=== PATIENT | male | born 1955 | race Caucasian/White ===

== ENCOUNTER 2021-05-27 00:34 | Inpatient (IN) | payer MEDICARE ==
[~2021-05-27] VITALS: Ht 170.2 cm; Wt 91.9 kg
[~2021-05-27 00:34] MED LIST: ACET120S; CYCL10 PO; HYDACE5 PO; IBUP600 PO; LOSA50; Naprosyn500 MG PO; Norco 5-325 Ta1 EACH PO; OXYACE7.5T PO; PRED1SU; VALA500 PO
[2021-05-27] MEDS ORDERED: PRED FORTE5 M1 BOTHEYES (00:56)
[2021-05-27 00:58] LABS: Hematocrit 40.9 % (37.0-53.0); Hemoglobin 13.3 g/dL (13.5-17.5); Mean Corpuscular HGB 29.8 pg (26.0-34.0); Mean Corpuscular HGB Conc 32.5 g/dL (31.5-36.5); Mean Corpuscular Volume 92 fL (80-100); Mean Platelet Volume 10.2 fL (9.1-12.4); Platelet Count 330 K/mm3 (150-400); RDW Coefficient Variation 13.7 % (11.7-14.2); Red Blood Cell Count 4.47 M/mm3 (4.30-5.90); White Blood Cell Count 19.45 K/mm3 (4.00-11.30)
[2021-05-27 01:17] LABS: Alanine Aminotransfer (ALT/SGP 91 U/L (12-78); Albumin, Blood 3.2 g/dL (3.4-5.0); Albumin/Globulin Ratio 0.8 (0.8-1.8); Alk Phos 108 U/L (50-136); Anion Gap 6 mmol/L (6-16); Aspartate Aminotrans (AST/SGOT 50 U/L (12-37); BAND PERCENT MAN 1 % (0-8); BASOPHILS PERCENT MAN 0 % (0-2); Bilirubin, Total 0.6 mg/dL (0.1-1.0); Blood Urea Nitrogen 16 mg/dL (8-24); Bun/Creatinine Ratio 23.8 (12.0-20.0); CO2, Blood 27 mmol/L (21-32); Calcium, Blood 8.8 mg/dL (8.5-10.1); Chloride, Blood 105 mmol/L (98-108); Creatinine, Blood 0.67 mg/dL (0.60-1.20); EOSINOPHILS PERCENT MAN 0 % (0-6); Globulin, Blood 4.1 g/dL (2.2-4.0); Glomerular Filtration Rate >60 (60-); Glucose, Blood 162 mg/dL (70-99); LYMPHOCYTES ABSOLUTE MAN 0.58 K/mm3 (0.84-5.20); LYMPHOCYTES PERCENT MAN 3 % (21-46); MONOCYTES ABSOLUTE MAN 0.97 K/mm3 (0.16-1.47); MONOCYTES PERCENT MAN 5 % (4-13); NEUTROPHILS ABSOLUTE MAN 17.89 K/mm3 (1.96-9.15); Potassium, Blood 4.1 mmol/L (3.5-5.5); SEG NEUTROPHILS PERCENT MAN 91 % (41-73); Sodium, Blood 138 mmol/L (136-145); TOTAL CELLS COUNTED 100; Total Protein, Blood 7.3 g/dL (6.4-8.2); Troponin I <0.015 ng/mL (0.000-0.040)
[2021-05-27 01:24] LABS: Influenza A, PCR NEGATIVE (NEGATIVE); Influenza B, PCR NEGATIVE (NEGATIVE); Resp Syncytial Virus, PCR NEGATIVE (NEGATIVE); SARS-Cov-2 (COVID-19) PCR, MMC NEGATIVE (NEGATIVE)
[2021-05-27 02:25] LABS: Source, Urine Voided
[2021-05-27 02:39] LABS: Blood, Urine 2+ (Neg); Glucose Qualitative, Urine Neg (Neg); Ketones, Urine 1+ (Neg); Leukocyte Esterase, Urine Neg (Neg); Nitrite, Urine Neg (Neg); Protein, Urine 3+ (Neg); Urobilinogen, Urine 1+ (Normal)
[2021-05-27 02:44] LABS: Appearance, Urine Clear (Clear); Bilirubin, Urine 1+ (Neg); Color, Urine Amber (P-Yellow)
[2021-05-27 02:46] LABS: Amorphous Light (0-Heavy); Bacteria Rare /hpf; Mucus Light (0-Heavy); Squamous Epithelial Cells Not Seen /hpf (Few); White Blood Cells, Urine 0-2 /hpf (0-5)
[2021-05-27 02:52] LABS: U Amphetamine Screen DETECTED; U Barbituate Screen Not Detected; U Benzodiazapine Screen Not Detected; U Buprenorphine Screen Not Detected; U Cannabinoids Screen DETECTED; U Cocaine Screen Not Detected; U Methadone Screen Not Detected; U Methamphetamine Screen DETECTED; U Opiates Screen Not Detected; U Oxycodone Screen Not Detected; U Phencyclidine Screen Not Detected; U Propoxyphene Screen Not Detected
[2021-05-27 05:59] LABS: Source, Urine Foley catheter
--- NOTE | 2021-05-27 05:59 | NUR ---
SALESPERSON FASHION ACCESSORIES SUMMARY PT IS AXO X4. PT ARRIVED VERY DYSPNEIC AND INCONTINENT OF URINE. PT'S BP SEVERELY ELEVATED W SBP'S IN THE 200'S SO ORDER FOR IV HYDRALAZINE OBTAINED. O2 SATS >92% ON 4L NC. TELE SHOWING AFIB 80-90'S. CIWA AT 2. PT REPORTING FEELING TIRED AND WANTED TO SLEEP. WILL REPORT TO ONCOMING RN.
[2021-05-27 06:25] LABS: Appearance, Urine Clear (Clear); Bilirubin, Urine Neg (Neg); Blood, Urine 2+ (Neg); Color, Urine Yellow (P-Yellow); Glucose Qualitative, Urine Neg (Neg); Ketones, Urine Neg (Neg); Leukocyte Esterase, Urine Neg (Neg); Nitrite, Urine Neg (Neg); Protein, Urine Neg (Neg); Specific Gravity, Urine 1.015 (1.003-1.022); Urobilinogen, Urine NORM (Normal)
[2021-05-27 06:45] LABS: Bacteria Not Seen /hpf; Granular Casts 0-2 /lpf (0); Squamous Epithelial Cells Not Seen /hpf (Few); White Blood Cells, Urine 0-2 /hpf (0-5)
[2021-05-27 09:18] LABS: Alanine Aminotransfer (ALT/SGP 80 U/L (12-78); Albumin/Globulin Ratio 0.7 (0.8-1.8); Alk Phos 102 U/L (50-136); Anion Gap 5 mmol/L (6-16); Aspartate Aminotrans (AST/SGOT 27 U/L (12-37); Bilirubin, Total 0.7 mg/dL (0.1-1.0); Blood Urea Nitrogen 14 mg/dL (8-24); CO2, Blood 32 mmol/L (21-32); Calcium, Blood 8.5 mg/dL (8.5-10.1); Chloride, Blood 100 mmol/L (98-108); Creatinine, Blood 0.74 mg/dL (0.60-1.20); Globulin, Blood 4.4 g/dL (2.2-4.0); Glomerular Filtration Rate >60 (60-); Glucose, Blood 181 mg/dL (70-99); Potassium, Blood 3.5 mmol/L (3.5-5.5); Sodium, Blood 137 mmol/L (136-145); Total Protein, Blood 7.4 g/dL (6.4-8.2); Troponin I 0.024 ng/mL (0.000-0.040)
--- NOTE | 2021-05-27 18:32 | NUR ---
SHIFT SUMMARY: PT CONTINUES A&Ox4, SLEEPS INTERMITTENTLY T/OUT DAY, REPORTS IMPROVEMENT OF DYSPNEA T/OUT SHIFT, TRANSITIONED TO RA THIS AM AND MAINTAINING O2 SATS >92%, DENIES CHEST PAIN, AFIB 80s-90s ON MONITOR. ABD US AND ECHO COMPLETED TODAY. ABD CONTINUES FIRM AND DISTENDED, PT DENIES DISCOMFORT EXCEPT WHEN REPOSITIONING. INDWELLING HUNTER PATENT AND DRAINING LIGHT YELLOW COLORED URINE. BP TRENDS UP T/OUT THE AFTERNOON, REQUIRING PRN MEDICATION. WILL CONTINUE TO MONITOR AND TREAT ACCORDINGLY UNTIL CHANGE OF SHIFT.
--- NOTE | 2021-05-28 02:14 | NUR ---
PATIENT NOTED TO HAVE APNEA DURING SLEEP DESATURATIONS LOW 79%, SNORING AND VERY RESTLESS, WHEN DISCUSSING PATIENT SLEEP WHEN AT HOME, PATIENT STATED, " I BEEN TOLD I NEEDED A CPAP BEFORE, NOT THE FIRST TIME BUT THEN NOTHING HAPPENS." CURRENTLY ON 2LNC AND STAYS 92-96%, DISCUSSED WITH SYSTEMS TRAINER AND RESPIRATORY AND WILL PASS ON TO DAYSHIFT ON GETTING A SLEEP STUDY [facility] 05/28/21 ORDER IF APPLICABLE.
--- NOTE | 2021-05-28 03:39 | NUR ---
AO X 4, ABLE TO MAKE NEEDS KNOWN, FORGETFUL AND ANXIOUS AT TIMES, TRIES TO GET OUT OF BED WITHOUT HELP BED ALARM ON AT ALL TIMES, CIWA 8-12 RECEIVED ATIVAN 2MG IVP X 1 FOR CIWA 12. LUNGS ARE COARSE WITH INSPIRATORY WHEEZING, REQUIRING OXYGEN AT NIGHT 2L NC > 92% SATURATIONS, PATIENT DESATS LOW 79% WHILE ASLEEP WITH APNEIC PERIODS, SUGGESTION FROM RESPIRATORY IS GET AN ORDER IN THE AM FOR A SLEEP STUDY TONIGHT, WILL PASS TO DAYSHIFT. PATIENT SINUS RHYTHM 90'S TO SINUSTACHYCARDIA 102, SBP 139-166/ DBP 70-99 RECEIVED HYDRAYLZINE 10MG X 1 IVP SBP< 160 PER PARAMETERS. ABDOMEN SOFT NONTENDER WITH WITH MILD DISTENSION BT X 4, HUNTER CATHETER IN PLACE, DRAINING DARK YELLOW URINE BELOW THE BLADDER BAG OFF THE FLOOR AND HUNTER CATHETER CARE PERFORMED, STAT LOCK REPLACED. SKIN REMAINS INTACT NO EDEMA NOTED IN EXTREMITIES, IV LAC PATENT AND FLUSHES SALINE LOCKED. WILL CONTINUE TO MONITOR UNTIL SHIFT CHANGE.
--- NOTE | 2021-05-28 03:58 | NUR ---
AFIB 90'S PVCS
--- NOTE | 2021-05-28 17:58 | NUR ---
SHIFT NOTE PT A/O X3, HAS BEEN SLEEPING T/O MOST OF THE DAY. THERE WAS A NOTED TREMOR THIS AM SHORTLY AFTER ASSUMING PT CARE THAT RESOLVED BY MORNING MEDICATION PASS. VSS. PT DENIES CP, REPORTS SOME SOB WITH POSITION CHANGES. HUNTER INTACT DRAINING WELL TO GRAVITY. PT HAS BEEN MADE MEDICAL STATUS WITH TELE MONITORING. PT EDUCATED TODAY ON IMPORTANCE OF MEDICATION COMPLIANCE AND LIFESTYLE CHANGES. OTHERWISE THERE ARE NO ACUTE CHANGES TO DISCUSS THIS SHIFT, PT WITH NEGATIVE CIWA
--- NOTE | 2021-05-29 03:01 | NUR ---
PATIENT HAD TWO TELE EVENTS WHERE HE WENT DOWN TO 25 HR O2 > 92% ASYMPTOMATIC AWAKE LYING IN BED, HE DIDN'T SUSTAINING FOR MORE THAN A COUPLE OF SECONDS AND WENT BACK UP TO 80-90 HR.
[2021-05-29 04:23] LABS: Anion Gap 7 mmol/L (6-16); Blood Urea Nitrogen 18 mg/dL (8-24); Bun/Creatinine Ratio 24.2 (12.0-20.0); CO2, Blood 32 mmol/L (21-32); Calcium, Blood 8.6 mg/dL (8.5-10.1); Chloride, Blood 99 mmol/L (98-108); Creatinine, Blood 0.75 mg/dL (0.60-1.20); Glomerular Filtration Rate >60 (60-); Glucose, Blood 119 mg/dL (70-99); Potassium, Blood 3.1 mmol/L (3.5-5.5); Sodium, Blood 138 mmol/L (136-145)
--- NOTE | 2021-05-29 05:34 | NUR ---
ALERT AND ORIENTATED, [facility] - PATIENT REPORTED LESS ANXIOUS TODAY, USES CALL LIGHT APPROPRIATELY LUNGS ARE CLEAR RA 95-98% WHEN AWAKE, SLEEPING REQUIRES 2L NC 89-96% WITH NOTED APNEA HEART RATE DIPPED DOWN TO 25 X 2 PER TAX PROFESSIONAL AND DIDN'T SUSTAIN FOR MORE THAN A COUPLE OF SECONDS BUMPED UP TO 100 BPM IMMEDIATELY, PATIENT ROLLS AROUND IN BED GETS CORDS WRAPPED UP AND THEN GETS ANXIOUS FROM ALL THE WIRES, REPORTED " I'M GOING HOME TODAY SO I CAN SLEEP." ABLE TO GET OOB AND AMBULATE TO BATHROOM SBA, HAD SM BM TODAY EDUCATION GIVEN ON NOT BEARING DOWN. POTASSIUM 3.1 THIS AM, RECEIVED NEW ORDER K-DUR 40MEG PO. WCTM UNTIL CHANGE OF SHIFT.
[2021-05-29] MEDS ORDERED: LISI5 PO (12:22)
[2021-05-29] MEDS ORDERED: METO50ER PO (12:23)
[2021-05-29] MEDS ORDERED: TORSE20 PO (12:23)
[2021-05-29] MEDS ORDERED: POTCHL20ER PO (13:19)
== END 2021-05-29 14:30 | disposition home or self-care (01) | DRG 291 ==
LOC: ER 00:34 → PCU 03:25
PROVIDERS: Emergency Medicine; Internal Medicine; ADMIT Internal Medicine
DX: I11.0 Hypertensive heart disease with heart failure (principal); J96.01 Acute respiratory failure with hypoxia; I50.41 Acute combined systolic (congestive) and diastolic (congestive) heart failure; I42.7 Cardiomyopathy due to drug and external agent; F17.210 Nicotine dependence, cigarettes, uncomplicated; I48.91 Unspecified atrial fibrillation; F15.11 Other stimulant abuse, in remission; T43.621A Poisoning by amphetamines, accidental (unintentional), initial encounter; Z20.822 Contact with and (suspected) exposure to COVID-19; I16.0 Hypertensive urgency; F10.20 Alcohol dependence, uncomplicated; Z53.20 Procedure and treatment not carried out because of patient's decision for unspecified reasons; R07.89 Other chest pain; D72.829 Elevated white blood cell count, unspecified; Z98.890 Other specified postprocedural states; X58.XXXA Exposure to other specified factors, initial encounter
CPT/HCPCS: 0241U; 36415; 71045; 76705; 80048; 80053; 81001; 83605; 83880; 84484; 85025; 93005; 93010; 93306; 96374; 96375; 99285-25; A9270; J0360; J1160; J1650; J1940; J2060

== ENCOUNTER → 2021-10-22 | Outpatient (CLI) | payer MEDICARE ==
[~2021-10-22] MED LIST changes: +LISI5 PO; +METO50ER PO; +POTCHL20ER PO; +PRED FORTE5 M1 BOTHEYES; +TORSE20 PO
== END | disposition home or self-care (01) ==
LOC: LAB 07:42 → LAB SHORT 07:42 → PLD 07:42
DX: L82.1 Other seborrheic keratosis (principal)
CPT/HCPCS: 88305

== ENCOUNTER 2022-02-11 06:51 | Day surgery (SDC) | payer MEDICARE ==
[~2022-02-11] VITALS: Ht 170.2 cm; Wt 87.0 kg
[2022-02-11] MEDS ORDERED: ASPI81CH PO (07:29)
[2022-02-11] MEDS ORDERED: DILT180 PO (07:30)
[2022-02-11] MEDS ORDERED: ATOR20 PO (07:30)
--- NOTE | 2022-02-11 10:20 | NUR ---
PATIENT ARRIVED TO [facility] RECOVERY ROOM FROM [employer] ME[employer]IC. DR MANN PRESENT. EKG ORDERED. LEFT GROIN SITE SOFT AND NONTENDER, DRESSING D&I. WARMING BLANKET PLACED.
--- NOTE | 2022-02-11 10:33 | NUR ---
EKG DONE PATIENT RESPONDS APPRPRIATELY. LEFT GROIN SITE UNCHANGED
--- NOTE | 2022-02-11 11:31 | NUR ---
Chacho here to discuss heart rhythm with patient.
--- NOTE | 2022-02-11 14:30 | NUR ---
PATIENT AMBULATED TO RESTROOM, TOLERATED WELL, LEFT GROIN SITE STABLE. ARRIVED. PATIENT AND VERBALIZED UNDERTSANDING OF DISCHARGE INSTRUCTIONS AND PRECAUTIONS. LAUREN (EKG) HERE TO PLACE A 14 DAY ZIO PATCH. PATIENT DRESSED, IV SITE DCED WITH CATHETER INTACT. NO FURTHER QUESTIONS. PATIENT TRANSFERED VIA WHEELCHAIR TO WAITING CAR, DRIVING.
== END 2022-02-11 15:00 | disposition home or self-care (01) ==
LOC: MHTC 06:51
DX: I70.213 Atherosclerosis of native arteries of extremities with intermittent claudication, bilateral legs (principal); I48.19 Other persistent atrial fibrillation; I50.9 Heart failure, unspecified; I11.0 Hypertensive heart disease with heart failure; Z79.01 Long term (current) use of anticoagulants
CPT/HCPCS: 37227; 37228; 37252; 75625; 75716; 75774; 76937; 85347; 93005; 93010; 93246; 99152; 99153; C1714; C1725; C1753; C1760; C1769; C1874; C1887; C1894; C2623; J0360; J1644; J2250; J2370; J2405; J3010; J7030; J7040; Q9967

== ENCOUNTER 2022-02-25 11:05 | Day surgery (SDC) | payer MEDICARE ==
[~2022-02-25] VITALS: Ht 170.2 cm; Wt 87.0 kg
[~2022-02-25 11:05] MED LIST changes: +ASPI81CH PO; +ATOR20 PO; +DILT180 PO
--- NOTE | 2022-02-25 14:55 | NUR ---
patient very agitated. phoned to notify her that was in recovery room now. patient states that He cannot stay on his back. patient placed on side with pillows to prop leg and back. He is more calm and resting at this time. right groin site soft and nontender. dressing D&I. no hematoma. no bleeding.
--- NOTE | 2022-02-25 15:32 | NUR ---
PATIENT RESTING EASILY. RIGHT GROIN SITE STABLE.
[2022-02-25] MEDS ORDERED: CLOP75 PO (16:22)
--- NOTE | 2022-02-25 16:43 | NUR ---
HERE. PATIENT SITTING UP IN BED. PATIENT C/O NAUSEA. 4 MG IV ZOFRAN GIVEN, WITH GOOD RESULTS
--- NOTE | 2022-02-25 17:07 | NUR ---
PATIENT SITTING UP EATING DINNER. DENIES NAUSEA.
--- NOTE | 2022-02-25 17:10 | NUR ---
patient up and ambulating to rest room. tolerated well right groin site stable
--- NOTE | 2022-02-25 17:41 | NUR ---
patient and verbalized understanding of discharge instructions and precautions. plavix prescription given to and called in to pharmacy.iv site dced with catheter intact. denies nausea. right groin site soft and nontender. dressing d&i. no hematoma, no bleeding. patient transferred via wheel chair to waiting car. driving.
== END 2022-02-25 22:51 | disposition home or self-care (01) ==
LOC: MHTC 11:05
DX: I70.223 Atherosclerosis of native arteries of extremities with rest pain, bilateral legs (principal); I48.19 Other persistent atrial fibrillation; I50.9 Heart failure, unspecified; Z87.891 Personal history of nicotine dependence; Z79.82 Long term (current) use of aspirin
CPT/HCPCS: 37227; 37252; 75716; 75774; 76937; 85347; 92978; 99152; 99153; A9270; C1714; C1725; C1753; C1760; C1769; C1874; C1887; C1894; C2623; J0360; J1200; J1644; J2250; J2370; J2405; J3010; J7030; J7040; Q9967

== ENCOUNTER 2022-03-17 10:56 | Day surgery (SDC) | payer MEDICARE ==
[~2022-03-17] VITALS: Ht 170.2 cm; Wt 87.0 kg
[~2022-03-17 10:56] MED LIST changes: +CLOP75 PO
--- NOTE | 2022-03-17 18:10 | NUR ---
PT DRESSED, IV DC'D INTACT, AMB TO BTR, DC'D BY WC WITH DRIVING PT HOME, PEDAL SITES X 2 STABLE
== END 2022-03-17 18:00 | disposition home or self-care (01) ==
LOC: MHTC 10:56
DX: I70.213 Atherosclerosis of native arteries of extremities with intermittent claudication, bilateral legs (principal); F10.21 Alcohol dependence, in remission; Z87.891 Personal history of nicotine dependence; I11.0 Hypertensive heart disease with heart failure; I50.9 Heart failure, unspecified; Z79.82 Long term (current) use of aspirin; I48.91 Unspecified atrial fibrillation
CPT/HCPCS: 36140; 37225; 37229; 37232; 37233; 37252; 75716; 75774; 76937; 85347; 92978; C1714; C1725; C1753; C1760; C1769; C1887; C1894; C2623; J1100; J1644; J2370; J2405; J2704; J3010; J7030; J7040; J7120; Q9967

== ENCOUNTER 2023-01-16 16:31 | Inpatient (IN) | payer MEDICARE ==
[~2023-01-16] VITALS: Ht 172.7 cm; Wt 76.7 kg
[2023-01-16 17:12] LABS: BASOPHILS ABSOLUTE AUTO 0.07 K/mm3 (0.00-0.23); BASOPHILS PERCENT AUTO 1 % (0-2); EOSINOPHILS ABSOLUTE AUTO 0.09 K/mm3 (0.00-0.68); EOSINOPHILS PERCENT AUTO 1 % (0-6); Hematocrit 32.2 % (37.0-53.0); Hemoglobin 10.6 g/dL (13.5-17.5); IMMATURE GRAN ABSOLUTE AUTO 0.06 K/mm3 (0.00-0.10); IMMATURE GRAN PERCENT AUTO 1 % (0-1); LYMPHOCYTES ABSOLUTE AUTO 2.52 K/mm3 (0.84-5.20); LYMPHOCYTES PERCENT AUTO 21 % (21-46); MONOCYTES ABSOLUTE AUTO 0.84 K/mm3 (0.16-1.47); MONOCYTES PERCENT AUTO 7 % (4-13); Mean Corpuscular HGB 32.1 pg (26.0-34.0); Mean Corpuscular HGB Conc 32.9 g/dL (31.5-36.5); Mean Corpuscular Volume 98 fL (80-100); Mean Platelet Volume 10.1 fL (9.1-12.4); NEUTROPHILS ABSOLUTE AUTO 8.45 K/mm3 (1.96-9.15); NEUTROPHILS PERCENT AUTO 70 % (41-73); Platelet Count 308 K/mm3 (150-400); RDW Coefficient Variation 13.5 % (11.7-14.2); RDW Standard Deviation 48.5 fL (35.1-46.3); White Blood Cell Count 12.03 K/mm3 (4.00-11.30)
[2023-01-16] MEDS ORDERED: TERB250 PO (17:18)
[2023-01-16] MEDS ORDERED: LISI20 PO (17:18)
[2023-01-16] MEDS ORDERED: KLOR-CON 1010 ME9 PO (17:20)
[2023-01-16 17:33] LABS: Albumin, Blood 3.2 g/dL (3.4-5.0); Albumin/Globulin Ratio 0.9 (0.8-1.8); Bilirubin, Total 0.2 mg/dL (0.1-1.0); Bun/Creatinine Ratio 38.3 (12.0-20.0); Calcium, Blood 9.1 mg/dL (8.5-10.1); Creatinine, Blood 1.28 mg/dL (0.60-1.20); Globulin, Blood 3.6 g/dL (2.2-4.0); Potassium, Blood 4.3 mmol/L (3.5-5.5); Total Protein, Blood 6.8 g/dL (6.4-8.2)
[2023-01-16 18:11] LABS: Influenza A, PCR NEGATIVE (NEGATIVE); Influenza B, PCR NEGATIVE (NEGATIVE); Resp Syncytial Virus, PCR NEGATIVE (NEGATIVE); SARS-Cov-2 (COVID-19) PCR, MMC NEGATIVE (NEGATIVE)
[2023-01-16 19:00] VITALS: BP 111/64
[2023-01-16 20:21] LABS: Anti-Xa UFH, PHA Monitoring <0.10 IU/mL; International Normalized Ratio 1.06; Prothrombin Time Results 11.1 Sec (9.7-11.5)
[2023-01-16 21:00] VITALS: BP 120/69
[2023-01-16 21:07] LABS: Source, Urine Clean Catch
[2023-01-16 21:15] LABS: Appearance, Urine Clear (Clear); Bilirubin, Urine Neg (Neg); Blood, Urine Neg (Neg); Glucose Qualitative, Urine Neg (Neg); Ketones, Urine Neg (Neg); Leukocyte Esterase, Urine Neg (Neg); Nitrite, Urine Neg (Neg); Protein, Urine Neg (Neg); Urobilinogen, Urine NORM (Normal)
[2023-01-16 21:18] LABS: Color, Urine Pale Yellow (P-Yellow)
[2023-01-16 21:30] VITALS: BP 105/78
[2023-01-16 21:33] LABS: U Amphetamine Screen DETECTED; U Barbituate Screen Not Detected; U Benzodiazapine Screen Not Detected; U Buprenorphine Screen Not Detected; U Cannabinoids Screen DETECTED; U Cocaine Screen Not Detected; U Methadone Screen Not Detected; U Methamphetamine Screen DETECTED; U Opiates Screen Not Detected; U Oxycodone Screen Not Detected; U Phencyclidine Screen Not Detected; U Propoxyphene Screen Not Detected
[2023-01-16 22:08] VITALS: BP 137/73
--- NOTE | 2023-01-16 23:55 | NUR ---
ASSUMPTION OF CARE: ED PHYSICIAN SPOKE WITH DR. Horn VASCULAR, IF BLE WORSENING ESPECIALLY THE LEFT, INFORM NIGHT HOSPITALIST AND POTENTIALLY DR. Horn DEPENDING ON SEVERITY. PATIENT IS COOPERATIVE, ALERT AND ORIENTED X 4. POOR HISTORIAN, AND SELF CARE DEFICIT. PATIETN EXTREMELY DIZZY WITH MOVEMENT ESPECIALLY STANDING, TO THE POINT THAT PATIENT BECOMES NAUSEA AND VOMITS. TREATED PER JUL. URINAL IN THE BED DUE TO SUCH SEVERITY OF DIZZINESS, HEPARIN INFUSING AND NS INFUSING. MILDLY DISTENDED HYPERACTIVE BOWEL SOUNDS, UNCOLLECTED STOOL SAMPLE, AND ECHO NEEDED TO BE DONE. PATIENT PAINFUL TREATED PER JUL, AFEBRILE AND VSS. LEFT FOOT ABSENT PULSE AND POPITEAL VERY VERY FAINT. RIGHT FOOT DOPPLER, AND POPLITEAL FAINT. CAP REFILL ON LEFT >3SECONDS, <6. CAP REFILL ON RIGHT 3-4SECS. LEFT FOOT COLOR IS MORE PALE, ENDORSES NUMBNESS IN BOTH L>R.
[2023-01-17 03:16] VITALS: BP 140/93
[2023-01-17 03:23] LABS: BASOPHILS ABSOLUTE AUTO 0.05 K/mm3 (0.00-0.23); BASOPHILS PERCENT AUTO 0 % (0-2); EOSINOPHILS ABSOLUTE AUTO 0.01 K/mm3 (0.00-0.68); EOSINOPHILS PERCENT AUTO 0 % (0-6); Hematocrit 25.4 % (37.0-53.0); Hemoglobin 8.5 g/dL (13.5-17.5); IMMATURE GRAN ABSOLUTE AUTO 0.07 K/mm3 (0.00-0.10); IMMATURE GRAN PERCENT AUTO 1 % (0-1); LYMPHOCYTES ABSOLUTE AUTO 2.26 K/mm3 (0.84-5.20); LYMPHOCYTES PERCENT AUTO 16 % (21-46); MONOCYTES ABSOLUTE AUTO 0.76 K/mm3 (0.16-1.47); MONOCYTES PERCENT AUTO 5 % (4-13); Mean Corpuscular HGB 32.2 pg (26.0-34.0); Mean Corpuscular HGB Conc 33.5 g/dL (31.5-36.5); Mean Corpuscular Volume 96 fL (80-100); Mean Platelet Volume 10.3 fL (9.1-12.4); NEUTROPHILS ABSOLUTE AUTO 11.05 K/mm3 (1.96-9.15); NEUTROPHILS PERCENT AUTO 78 % (41-73); Platelet Count 251 K/mm3 (150-400); RDW Coefficient Variation 13.6 % (11.7-14.2); RDW Standard Deviation 47.9 fL (35.1-46.3); Red Blood Cell Count 2.64 M/mm3 (4.30-5.90)
[2023-01-17 03:43] LABS: Albumin, Blood 2.6 g/dL (3.4-5.0); Albumin/Globulin Ratio 0.9 (0.8-1.8); Bilirubin, Total 0.2 mg/dL (0.1-1.0); Bun/Creatinine Ratio 63.7 (12.0-20.0); Calcium, Blood 7.9 mg/dL (8.5-10.1); Creatinine, Blood 0.86 mg/dL (0.60-1.20); Globulin, Blood 2.9 g/dL (2.2-4.0); Magnesium, Blood 2.1 mg/dL (1.6-2.4); Potassium, Blood 4.3 mmol/L (3.5-5.5); Total Protein, Blood 5.5 g/dL (6.4-8.2)
[2023-01-17 04:32] VITALS: BP 148/80
[2023-01-17 07:32] VITALS: BP 145/85
[2023-01-17 11:28] VITALS: BP 147/78
--- NOTE | 2023-01-17 11:43 | NUR ---
ASSUMPTION OF CARE ASSUMED CARE AT APPROX 0700. PT AOX4, COOPERATIVE W/ CARE, ANXIOUS AT TIMES. ABLE TO COMMUNICATE NEEDS PRN. VSS. TELEMETRY SHOWING AFIB 80'S-90'S. FAINT/THREADY PPP. NUMBNESS TINGLING BLE, WORSE IN LLE. PALE IN COLOR. CAP REFILL >3 SECONDS. CURRENTLY ON RM AIR, SATS >90%. REPORTS BURNING PAIN 9/10 IN BLE, ESPECIALLY IN LLE. NO CHANGES ASSESSED IN BLE. MEDICATED PER EMAR, W/ REPORTED RELIEF. CURRENTLY NPO, EXCEPT FOR ICE CHIPS AND SIPS OF WATER W/ MEDICATIONS. EXPERIENCES NAUSEA, NO VOMITING, W/ INCREASED PAIN. VOIDING, URGENCY ASSESSED. OCCASSIONALLY INCONTINENT OF URINE, ATTENDS IN PLACE. URINAL AT BEDSIDE. FREQUENT FLATULENCE, ATTEMPTED TO USE BEDPAN FOR BM, UNABLE AT THIS TIME. MD TO BEDSIDE FOR ROUNDING, RCVD ORDER FOR IV FLUIDS AND PO ATIVAN FOR ANXIETY. IVF INFUSING PER ORDER. PO ATIVAN ADMINISTERED PER EMAR FOR ANXIETY. HEPARIN GTT INFUSING PER ORDER. DAUGHTER AT BEDSIDE. CALL LIGHT IN REACH.
--- NOTE | 2023-01-17 16:31 | NUR ---
At approx 1430 pt reporting inconsolable pain to toss and turning in the bed, pt reporting anxiety, attempting to get out of bed and flopping around in bed. Medicated with oxycodine and titrated up on po ativan. Discussed alcohol use and drug use with patient and family, pt has not had drink for 2 days and meth + on admission, pt states drink daily 3-4 beers, smokes cannabis and meth use. Notified MD, new orders for ciwa protocol and ativan, 1 mg given. Pt continues to be in pain 02/09, notified MD new orders for morphine, 2 mg given per order. Pt continues to flop around in bed, ciwa remains at 17, medicated with additional 2mg. Pt appears to be resting at this time. Will continue to monitor.
[2023-01-17 16:57] VITALS: BP 108/61
--- NOTE | 2023-01-17 17:37 | NUR ---
SHIFT SUMMARY MENTATION PROGRESSIVELY DECREASED T/O SHIFT, WAS FORGETFUL AT TIMES AT BASELINE. CIWA'S INITIATED, RANGING FROM 4-17. MANANGED PER EMAR. APPEARS TO BE RESTING COMFORTABLY AT THIS TIME. VSS. CURRENTLY ON RM AIR, SATS >90%. TELEMETRY SHOWING AFIB 80'S-100'S. USED DOPPLER TO ASSESS BLE PULSES, PRESENT IN R FOOT, ABSENT L FOOT. MD AWARE. STAT ARTERIAL DUPLEX SCAN PERFORMED. ECHO PERFORMED THIS MORNING. NO OTHER ACUTE CHANGES NOTED. VSS. PRESENT AT BEDSIDE T/O AFTERNOON. WILL CONTINUE TO MONITOR. WILL REPORT TO ONCOMING RN.
--- NOTE | 2023-01-17 20:24 | NUR ---
AOC: PATIENT IS RESTING WELL, ETOH WITHDRAWAL AND CIWA CURRENLTY IN PLACE WHICH NEED INCREASED AMOUNT OF ATIVAN, CURRENTLY RESTING HEPARIN INFUSING. NPO FOR POSSIBLE INTERVENTION FROM DR. Horn TOMORROW. DAUGHTER IN THE ROOM AT TIME OF ASSUMPTION.
[2023-01-17 20:36] VITALS: BP 109/51
[2023-01-17 22:14] LABS: Base Excess Venous -5.4 mmol/L; Bicarbonate Venous 20.1 mmol/L (24.0-30.0); pH Blood Venous 7.38 (7.34-7.37)
[2023-01-18] VITALS (55 sets, daily range): BP systolic 70–173; BP diastolic 32–145
--- NOTE | 2023-01-18 01:57 | NUR ---
CIWA AND VERY INCREASED WITHDRAWAL: PATIENT AT APPROX 2312, BEGAN TO BECOME EXTREMELY AGITATED TRYING TO GET OUT OF BED, EXTREMELY TREMULOUS. SWEATY, OBVIOUSLY ANXIETY. 4MG OF ATIVAN WITH PATIENT STILL REACTING ONLY RELIEF FOR ABOUT 40 MINUTES, SPOKE WITH PHYSICIAN AND CHARGE ICU, PATIENT COULD BENEFIT FROM PHENOBARBITAL. WAS GIVEN 130mG FOLLOW BY RECENT ADMINISTRATION OF 65, PATIENT SEEMS TO BE MORE EFFECTIVE. VBG WAS ALSO PREFORM BEFORE, ALL MEDICATIONS PREFORMED PATIENT IS CURRENTLY <100 AND SPO2 >95%. IS IN RESTRAINTS CURRENLTY DUE TO TRYING TO LEAVE THE BED, AND STILL FIGHTING MEDICATIONS. UNABLE TO PREFORM COMPLETE [facility] DUE TO INABILITY TO FOLLOW COMMANDS, HEPARIN STILL INFUSING, SLOWLY BECOMING MORE COOPERATIVE, ICU COLLAR TRIMMER AWARE OF PATIENT. NO CHANGE IN HEPARIN SINCE ASSUMPTION OF CARE. NO LONGER ALERT AND ORIENTED LIKE PREVIOUS SHIFT WITH PATIENT, NO N/V TREATED FOR PAIN DUE CPOT OF 8.. FAMILY HAS BEEN EDUCATED.
--- NOTE | 2023-01-18 06:16 | NUR ---
EOS CIWAS: THORUGHOUT THE SHIFT PATIENT WHEN SEVERELY AGITATED BECOME UP TO A 20 ON CIWA, WITH THE PHONOBARBITAL AND ATIVAN ON BOARD HE WAS ROUGHLY A 5-9, WITH THE AMOUNT OF MEDCIATION PATIENT COULD BE APPROPRIATE FOR ICU, PHARMACIST AGREED. WITH AM STAFFING BEING ABLE TO HANDLE MORE ICU PATIENTS WILL MAKE RECOMMENDATION TO CHARGE AND ONCOMING RNKell SEE AT EOS IS A 7-8 WITH RECENT MEDCIATION ADMINISTRATION.
--- NOTE | 2023-01-18 10:45 | NUR ---
TRANSFER TO ICU: REPORT RECEIVED FROM WILBERT Patel RN. PT TRANSFERRED FROM PCU-04 TO ICU-15 AT APPROX 1035. ON ARRIVAL, THE PT IS THRASHING IN BED, BILAT SOFT WRIST RESTRAINTS IN PLACE. HE DOES NOT RESPOND TO HIS OWN NAME BEING SAID & IS UNABLE TO FOLLOW ANY DIRECTIONS AT THIS TIME. LS DIM, PT TACHYPNEIC, WORSENED W/ INCREASED AGITATION. CURRENTLY ON 2L W/ DIFFICULTY OBTAINING ACCURATE SPO2 READING. MONITOR SHOWS AFIB W/ BBB, PVCs. HTN INCREASED W/ AGITATION. LLE PULSES UNABLE TO BE OBTAINED W/ DOPPLER, RLE POST TIB PULSE OBTAINED W/ DOPPLER, FAINT & THREADY. ABD SOFT, NO GRIMACE NOTED TO PALPATION. PASSING FLATUS, NO BM NOTED. ATTENDS IN PLACE FOR INCONTINENCE OF BOWEL & BLADDER. SKIN OVERALL INTACT, AREAS OF MOTTLING HAVE IMPROVED SINCE YESTERDAY, PER REPORT. THE PT IS CURRENTLY RECEIVING HEPARIN & D5 1/2 NS PER EMAR. ORDERS PLACED FOR PRECEDEX DRIP. WILL CONTINUE TO MONITOR & UPDATE NEEDED.
--- NOTE | 2023-01-18 11:00 | NUR ---
ASSUMPTION OF CARE/TRANSFER NOTE ASSUMED CARE AT APPROX 0700. PT APPEARS TO BE RESTING COMFORTABLY, AROUSABLE TO PAINFUL STIMULI. VSS. TELEMETRY SHOWING AFIB 90'S-110'S. PEDAL PULSE AUSCULATED W/ DOPPLER IN R FOOT, UNABLE TO AUSCULTATE PULSE IN L FOOT. BLE COOL TO TOUCH. CURRENTLY ON 2L VIA NC D/T POOR PERFUSION, SATS >90%. BILATERAL SOFT WRIST RESTRAINTS IN PLACE, ASSESSED SEE RESTRAINT INTERVENTION. IVF INFUSING PER ORDER. HEPARIN GTT INFUSING PER EMAR. BEDBATH AND ATTENDS CHANGE PERFORMED. FAMILY AT BEDSIDE. CALL LIGHT IN REACH. AROUND 0930, PT BECAME RESTLESS, PULLING AT CORDS AND FLOPPING IN BED. PT OPENING EYES SPONTANEOUSLY, UNABLE TO REORIENT. AOX0-1. MEDICATED PER EMAR W/ IV PHENOBARBITAL. DECISION MADE TO TRANSFER TO ICU FOR PRECEDEX GTT. CONTACTED, [facility] ORDER FOR PRECEDEX GTT AND TRANSFER. REPORT GIVEN TO ACCEPTING RN. BOBBYS W/ PT, PROVIDED EDUCATION TO FAMILY REGARDING TRANSFER. PT TRANSFERRED TO ICU AROUND 1045.
[2023-01-18 13:07] LABS: Albumin, Blood 2.5 g/dL (3.4-5.0); Bilirubin, Total 0.2 mg/dL (0.1-1.0); Bun/Creatinine Ratio 48.1 (12.0-20.0); Calcium, Blood 7.9 mg/dL (8.5-10.1); Creatinine, Blood 1.04 mg/dL (0.60-1.20); Globulin, Blood 2.5 g/dL (2.2-4.0); Potassium, Blood 3.9 mmol/L (3.5-5.5)
[2023-01-18 13:37] LABS: BASOPHILS ABSOLUTE AUTO 0.05 K/mm3 (0.00-0.23); BASOPHILS PERCENT AUTO 0 % (0-2); EOSINOPHILS PERCENT AUTO 0 % (0-6); IMMATURE GRAN ABSOLUTE AUTO 0.76 K/mm3 (0.00-0.10); IMMATURE GRAN PERCENT AUTO 2 % (0-1); LYMPHOCYTES ABSOLUTE AUTO 2.59 K/mm3 (0.84-5.20); LYMPHOCYTES PERCENT AUTO 7 % (21-46); MONOCYTES ABSOLUTE AUTO 2.14 K/mm3 (0.16-1.47); MONOCYTES PERCENT AUTO 6 % (4-13); Mean Corpuscular HGB 32.7 pg (26.0-34.0); Mean Corpuscular HGB Conc 32.3 g/dL (31.5-36.5); Mean Platelet Volume 11.2 fL (9.1-12.4); NEUTROPHILS ABSOLUTE AUTO 29.46 K/mm3 (1.96-9.15); NEUTROPHILS PERCENT AUTO 84 % (41-73); NRBC ABSOLUTE 0.14 K/mm3 (0.00-0.02); NRBC Auto 0.4 /100 WBC (0.0-0.2); Platelet Count 216 K/mm3 (150-400); RDW Coefficient Variation 14.9 % (11.7-14.2); RDW Standard Deviation 51.7 fL (35.1-46.3); Red Blood Cell Count 1.59 M/mm3 (4.30-5.90)
[2023-01-18 13:42] LABS: Mean Corpuscular Volume 101 fL (80-100)
[2023-01-18 13:44] LABS: Hematocrit 16.1 % (37.0-53.0); Hemoglobin 5.2 g/dL (13.5-17.5)
--- NOTE | 2023-01-18 14:23 | NUR ---
UPDATE: CALL TO DR PORTILLO REGARDING PT's COMPLETED EKG W/ CHANGES WHEN COMPARED TO EKG COMPLETED ON 01/16/23. SHE WOULD LIKE SERIAL TROPONINS TO BE DRAWN Q2 x3. SHE WOULD ALSO LIKE CARDIOLOGY TO BE CONSULTED, THIS RN HAS NOTIFIED DR CHOUDHURY, BUSINESS ASSISTANT, OF NEW CONSULTATION. HE STS HE WILL REVIEW THE PT's CHART.
--- NOTE | 2023-01-18 15:55 | NUR ---
DR CHOUDHURY: PROVIDER HAS BEEN AT BEDSIDE THIS AFTERNOON FOR ORDERED CONSULTATION. HE HAS REVIEWED THE EKGs & RECENT LABWORK, STS THAT HE WILL CONTINUE TO MONITOR BUT HAS NO PLANS FOR INTERVENTION AT THIS TIME.
--- NOTE | 2023-01-18 16:35 | NUR ---
Spoke with pt's "RASHID" over the phone this afternoon. She states she does understand pt's condition seems "very serious", and admits to feeling "pretty nervous". We did discuss pt's code status, and she is aware of pt's wishes. However, she states he would not want to be "brought back" if he were actually "". She states she is coming in around 1700 today, so we will discuss it more then.
--- NOTE | 2023-01-18 18:10 | NUR ---
Pt's and daughter arrived, both report anxiety regarding pt's current condition. He was placed on bipap for a short time, having rapid resp rate, lower 02 and hypotension. Bolus given, and bipap removed after a short while. Both and daughter spoke with Dr. Cox and understand the pt also needed a unit of blood due to low H&H, indicating an active bleed. They are not ready to discuss code status further tonight after what they called a "bad scare". They ask to have more discussion on this tomorrow. However, they did state tonight if he needed to be intubated, they would want to move forward with that.
[2023-01-18 18:45] LABS: Hematocrit 16.7 % (37.0-53.0); Hemoglobin 5.4 g/dL (13.5-17.5)
--- NOTE | 2023-01-18 19:21 | NUR ---
SHIFT SUMMARY: AT APPROX 1620 THIS EVENING, THE PT BEGAN TO EXPERIENCE WORSENING MENTATION & PERIODS OF SNORING/ APNEA. DURING THESE PERIODS, THE PT's SPO2 HAS BEGUN DROPPING TO APPROX 65% W/ ADEQUATE PLETH WAVEFORM NOTED. THIS RN HAS PLACED THE PT ON OXYGEN & COMPLETED JAW THRUST IN AN ATTEMPT TO ALLEVIATE APPARENT OBSTRUCTION. RT REAL AT BEDSIDE W/ NRB MASK TO ASSIST. THE PT's O2 SATS HAVE IMPROVED SLIGHTLY W/ INCREASED O2 VIA NRB, BUT CONTINUE DROPPING TO 70s W/ PERIODS OF APNEA/ SNORING/ SHALLOW RESPIRATIONS. DR PORTILLO TO BEDSIDE & HAS CONSULTED DR CHESTER WHO HAS ALSO COME TO BEDSIDE. ORDERS FOR BIPAP PLACED & RT REGINO, HAS NICOLE BIPAP TO BEDSIDE. PRECEDEX HAS BEEN TITRATED DOWN THIS AFTERNOON & PLACED ON STANDBY DURING THIS INSTANCE. SINCE THAT TIME, THE PT's MENTATION HAS BEGUN TO IMPROVE SLOWLY. HE IS AWAKENING MORE BUT OVERALL REMAINS CONFUSED. LS W/ WHEEZING NOTED TO RLL, O2 SATS > 95%, NOW ON 2L NC. MONITOR SHOWS AFIB W/ BBB, HR 100-110s, BP STABLE. CRITICAL LOW HGB REPORTED THIS EVENING DESPITE ONE UNIT PRBCs TRANSFUSED, 2 ADDITIONAL UNITS HAVE BEEN ORDERED AT THIS TIME BY DR CHESTER. THE PT HAS BEEN NPO R/T AMS PER NURSING JUDGEMENT. THIS RN HAS COMPLETED DIGITAL DISIMPACTION OF LARGE AMNTS FIRM STL NOTED, SENT FOR GUAIAC BUT NO BLOOD NOTED AT THAT TIME. ATTENDS IN PLACE FOR INCONTINENCE OF BLADDER & BOWEL. SKIN CONDITION OVERALL INTACT, Q2H REPOSITIONING TO MAINTAIN SKIN INTEGRITY. WILL CONTINUE TO MONITOR & REPORT OFF TO ONCOMING RN.
--- NOTE | 2023-01-18 20:00 | NUR ---
ASSUMED CARE OF PT AT 1915. REPORT RECEIVED AT BEDSIDE. PT PRESENTS IN BED. ON PRECEDEX AT 0.2 MCG'S/KG/HOUR. PT CURRENTLY RESTING IN NO APPARENT DISTRESS. PT TO RECEIVE 2 UNITS PRBC'S THIS NIGHT. WILL REVIEW CHART AND PLAN OF CARE FOR THIS PT.
--- NOTE | 2023-01-18 22:30 | NUR ---
PT CONTINUES WITH BLOOD TRANSFUSION. NO S/S ADVERSE OR TRANSFUSION REACTIONS TO NOTE. PT CONTINUES ON PRECEDEX AT 0.2 MCG'S/KG/HOUR. PT'S CIWA SCORING LOW. WILL TITRATE NEEDED. HAVE BEEN ABLE TO TITRATE O2 PER NASAL CANNULA TO OFF. PT MAINTIANING OXYGEN SATURATIONS > 95 PERCENT. WILL CONTINUE TO MONITOR.
[2023-01-19] VITALS (60 sets, daily range): BP systolic 74–158; BP diastolic 31–119
[2023-01-19 00:11] LABS: Hematocrit 21.2 % (37.0-53.0); Hemoglobin 7.1 g/dL (13.5-17.5)
--- NOTE | 2023-01-19 01:35 | NUR ---
PT REQUIRES PRECEDEX INCREASE TO 0.6 MCG'S/KG/HOUR. PT NEEDED TO BE PLACED IN SOFT WRIST RESTRAINTS. HAD BEGUN TO PULL AT LINES AND IV'S. PT WAS NOT ABLE TO BE REDIRECTED. DID PLACE CONDOM CATH TO DECREASE STIMULI IF HE HAD BECOME INCONTINENT TO URINE.
--- NOTE | 2023-01-19 03:53 | NUR ---
PT ESCALATES IN AGITATION. RESISTS DIRECT CARE. PULLS AGGRESSIVELY AGAINST RESTRAINTS. ATTEMPTS TO PULL AT LINES. INCREASED PRECEDEX TO 0.9 MCG'S/KG/HOUR. DID ADMINISTER 5 MG HALDOL. AFTER A BIT, PT DOES CALM AGAIN. WILL OBSERVE AND EVALUATE FOR ABILITY TO BRING PRECEDEX DRIP DOWN SOME.
--- NOTE | 2023-01-19 04:28 | NUR ---
PT HAS BLOOD PRESSURE DROP, AND SATURATION DROP WELL. PLACED PRECEDEX ON HOLD. 250 ML NS BOLUS GIVEN. BLOOD PRESSURES BEGINNING TO IMPROVE. HAVE RESTARTED PRECEDEX AT 0.5 MCG'S/KG/HOUR. PT AWAKENS EASILY AT THIS TIME. WILL CONTINUE TO MONITOR.
[2023-01-19 05:11] LABS: BASOPHILS ABSOLUTE AUTO 0.04 K/mm3 (0.00-0.23); BASOPHILS PERCENT AUTO 0 % (0-2); EOSINOPHILS PERCENT AUTO 0 % (0-6); Hematocrit 19.7 % (37.0-53.0); Hemoglobin 6.6 g/dL (13.5-17.5); IMMATURE GRAN ABSOLUTE AUTO 0.38 K/mm3 (0.00-0.10); IMMATURE GRAN PERCENT AUTO 2 % (0-1); LYMPHOCYTES ABSOLUTE AUTO 1.86 K/mm3 (0.84-5.20); LYMPHOCYTES PERCENT AUTO 9 % (21-46); MONOCYTES PERCENT AUTO 9 % (4-13); Mean Corpuscular HGB 31.1 pg (26.0-34.0); Mean Corpuscular HGB Conc 33.5 g/dL (31.5-36.5); Mean Platelet Volume 11.1 fL (9.1-12.4); NEUTROPHILS ABSOLUTE AUTO 17.03 K/mm3 (1.96-9.15); NEUTROPHILS PERCENT AUTO 80 % (41-73); NRBC ABSOLUTE 0.91 K/mm3 (0.00-0.02); NRBC Auto 4.3 /100 WBC (0.0-0.2); Platelet Count 151 K/mm3 (150-400); RDW Standard Deviation 54.3 fL (35.1-46.3); Red Blood Cell Count 2.12 M/mm3 (4.30-5.90); White Blood Cell Count 21.21 K/mm3 (4.00-11.30)
[2023-01-19 05:30] LABS: Albumin, Blood 2.1 g/dL (3.4-5.0); Bilirubin, Total 0.3 mg/dL (0.1-1.0); Bun/Creatinine Ratio 37.1 (12.0-20.0); Calcium, Blood 7.2 mg/dL (8.5-10.1); Creatinine, Blood 1.05 mg/dL (0.60-1.20); Globulin, Blood 2.1 g/dL (2.2-4.0); Potassium, Blood 3.5 mmol/L (3.5-5.5); Total Protein, Blood 4.2 g/dL (6.4-8.2)
--- NOTE | 2023-01-19 05:37 | NUR ---
PT'S OXYGEN SATURATION AND BLOOD PRESSURES HAVE IMPROVED. PRECEDEX AT 0.5 MCG'S/KG/HOUR. PT STILL ABLE TO AWAKEN AND MOVE ABOUT. NO LONGER AGGRESSIVELY TRYING TO PULL AT RESTRAINTS. 1 L/M OXYGEN PER NASAL CANNULA ADEQUATE TO KEEP OXYGEN SATURATIONS > 90 PERCENT. VERY DIFFICULT TO ACHIEVE GOOD SATURATION READINGS. WILL CONTINUE TO MONITOR PT, AND WILL REPORT OFF TO ONCOMING RN.
[2023-01-19 05:39] LABS: Mean Corpuscular Volume 93 fL (80-100)
--- NOTE | 2023-01-19 06:47 | NUR ---
PT HAS HGB RETURNED THIS MORNING AT 6.6. 1 MORE UNIT OF PRBC'S ORDERED. THIS UNIT HAS BEGUN INFUSING.
--- NOTE | 2023-01-19 07:45 | NUR ---
ASSUMED CARE: REPORT RECEIVED FROM DEMAR Felix RN. ASSUMED CARE OF THIS PT AT APPROX 0700. ON ASSESSMENT, THE PT IS RESTING QUIETLY. HE AWAKENS TO TACTILE STIMULUS & IS AGITATED ONCE AWAKE. HE IS MUMBLING WORDS THAT ARE NOT DISCERNABLE TO THIS RN. HE IS NOT DIRECTABLE OR ABLE TO FOLLOW DIRECTIONS AT THAT TIME. LS DIM, PT ON 2L NC W/ O2 SATS > 95% ON AVG. MONITOR SHOWS AFIB W/ BBB, PVCs, HR 80-100s, BP STABLE. PT NPO R/T AMS, ABD REMAINS SOFT, NONDISTENDED, NO GRIMACE NOTED TO PALPATION. CONDOM CATH IN PLACE W/ YELLOW URINE NOTED IN OUTPUT BAG. SKIN CONDITION OVERALL INTACT, Q2H REPOSITIONING TO MAINTAIN SKIN INTEGRITY. THE PT FREQUENTLY REPOSITIONS SELF & REMOVES PILLOWS. WILL CONTINUE TO MONITOR & UPDATE NEEDED.
--- NOTE | 2023-01-19 10:15 | NUR ---
DR CHESTER: PROVIDER AT BEDSIDE TO EVAL PT THIS AM. DISCUSSED CURRENT BLOOD TRANSFUSION, STS HE WILL PLACE FOLLOW-UP H&H ORDERS FOR THIS AFTERNOON. ALSO DISCUSSED UNKNOWN SOURCE OF BLEEDING, CT SCAN ABD TO BE ORDERED. NO GI COVERAGE UNTIL JANUARY. NO OTHER CHANGES AT THIS TIME.
[2023-01-19 10:36] LABS: Stool Occult Blood Guaiac 1 Pos (Neg)
--- NOTE | 2023-01-19 11:10 | NUR ---
DR Horn: PROVIDER AT BEDSIDE TO EVAL PT THIS AM. HE HAS EVALUATED THE BLE & DISCUSSED THE PT's POC W/ THIS RN. HE HAS NO PLANS TO TAKE THE PT TO THE ART INSTRUCTOR FOR PERIPHERAL REVASCULARIZATION UNTIL THE PT HAS STABILIZED MORE REGARDING PERSISTANT DROP IN H&H DESPITE BLOOD TRANSFUSIONS & ETOH W/D SYMPTOMS. NO OTHER CHANGES AT THIS TIME.
[2023-01-19 12:53] LABS: Hematocrit 20.7 % (37.0-53.0); Hemoglobin 7.1 g/dL (13.5-17.5)
--- NOTE | 2023-01-19 19:00 | NUR ---
SHIFT SUMMARY: NO ACUTE CHANGES SINCE PRIOR UPDATES. PT CONTINUES HAVING ALTERED MENTATION W/ PERIODS OF AGITATION IN WHICH HE IS NOT ABLE TO BE REDIRECTED. DURING THESE TIMES, HE THRASHES IN THE BED & PULLS AGAINST RESTRAINTS CONTINUOUSLY MUMBLING CURSE WORDS OR "HELP." WHEN ASKED WHAT HE NEEDS TO HELP HIM, HE DOES NOT RESPOND BUT INSTEAD CURSES AT STAFF. WHEN NOT AGITATED, THE PT IS RESTING SOUNDLY & CAN ONLY BE ROUSED W/ TACTILE STIMULUS. LS DIM IN BASES, PT ON 2-6L DURING THIS SHIFT. OCCASIONAL DESATS WHILE SLEEPING. STRONG COUGH TO CLEAR SECRETIONS. MONITOR SHOWS AFIB W/ BBB, HR 80-100s, BP STABLE. PT NPO R/T AMS. NO BM THIS SHIFT. INCONTINENT OF URINE, ATTENDS IN PLACE. SKIN OVERALL INTACT, Q2H REPOSITIONING ATTEMPTED THIS SHIFT TO MAINTAIN SKIN INTEGRITY. AFTER REPOSITIONING, THE PT IS OFTEN NOTED TO MOVE SELF DOWN IN BED & REMOVE PILLOWS THAT HAVE BEEN PLACED. WILL CONTINUE TO MONITOR & REPORT OFF TO ONCOMING RN.
[2023-01-19 20:14] LABS: Hematocrit 23.7 % (37.0-53.0); Hemoglobin 7.1 g/dL (13.5-17.5)
--- NOTE | 2023-01-19 21:26 | NUR ---
ASSUMED CARE OF PT AT 1900. REPORT RECEIVED. PT PRESENTS IN BED. ALERT AND THRASHING ABOUT BED MODERATELY. PT'S DAUGHTER AT BEDSIDE. PRECEDEX AT 0.7 MCG'S/KG/HOUR. SEE CIWA SCORING FOR ETOH W/D'S. HAVE SUBSEQUENTLY GIVEN PT A TOTAL OF 4 MG ATIVAN AND 3 MG HALDOL WITHING PAST 1 HOUR. PRECEDEX DRIP INCREASED TO .9MCG'S/KG/HOUR. PT CONTINUES TO FIGHT RESTRAINTS. HAVE OPENED CURTAINS TO PROVIDE A DIRECT VISUAL TO PT. DAUGHTER HAS GONE HOME FOR THE NIGHT. WILL REVIEW CHART AND PLAN OF CARE FOR THIS PT.
--- NOTE | 2023-01-19 23:11 | NUR ---
PT CONTINUES BEING VERY RESTLESS IN BED. TRIES TO SIT UP, THRASHES HIS HEAD BACK AND FORTH. PRECEDEX HAS BEEN INCREASED INCREMENTALY TO 1.4 MCG'S/KG/HOUR. PENDING RESULTS. WILL EVALUATE NEED FOR FURTHER PRN INTERVENTION. WILL DO ROUNDS TO CHECK IF PT ATTENDS NEED CHANGED.
[2023-01-20] VITALS (53 sets, daily range): BP systolic 93–199; BP diastolic 48–150
--- NOTE | 2023-01-20 02:13 | NUR ---
PT CURRENTLY RESTING WITHOUT AGITATION WITH PRECEDEX AT 1.4 MCG'S/KG/HOUR.
[2023-01-20 04:31] LABS: BASOPHILS ABSOLUTE AUTO 0.04 K/mm3 (0.00-0.23); BASOPHILS PERCENT AUTO 0 % (0-2); EOSINOPHILS ABSOLUTE AUTO 0.16 K/mm3 (0.00-0.68); EOSINOPHILS PERCENT AUTO 1 % (0-6); Hematocrit 22.1 % (37.0-53.0); Hemoglobin 7.3 g/dL (13.5-17.5); IMMATURE GRAN ABSOLUTE AUTO 0.21 K/mm3 (0.00-0.10); IMMATURE GRAN PERCENT AUTO 1 % (0-1); LYMPHOCYTES ABSOLUTE AUTO 1.32 K/mm3 (0.84-5.20); LYMPHOCYTES PERCENT AUTO 6 % (21-46); MONOCYTES ABSOLUTE AUTO 1.61 K/mm3 (0.16-1.47); MONOCYTES PERCENT AUTO 8 % (4-13); Mean Corpuscular HGB 31.6 pg (26.0-34.0); Mean Corpuscular Volume 96 fL (80-100); Mean Platelet Volume 11.5 fL (9.1-12.4); NEUTROPHILS ABSOLUTE AUTO 18.18 K/mm3 (1.96-9.15); NEUTROPHILS PERCENT AUTO 85 % (41-73); NRBC ABSOLUTE 0.56 K/mm3 (0.00-0.02); NRBC Auto 2.6 /100 WBC (0.0-0.2); Platelet Count 160 K/mm3 (150-400); RDW Coefficient Variation 17.3 % (11.7-14.2); RDW Standard Deviation 57.1 fL (35.1-46.3); Red Blood Cell Count 2.31 M/mm3 (4.30-5.90); White Blood Cell Count 21.52 K/mm3 (4.00-11.30)
[2023-01-20 05:46] LABS: Albumin, Blood 2.3 g/dL (3.4-5.0); Blood Urea Nitrogen 23 mg/dL (8-24); Bun/Creatinine Ratio 30.3 (12.0-20.0); CO2, Blood 22 mmol/L (21-32); Calcium, Blood 7.7 mg/dL (8.5-10.1); Creatinine, Blood 0.76 mg/dL (0.60-1.20); Glomerular Filtration Rate 97 (60-); Glucose, Blood 131 mg/dL (70-99); Phosphorus, Blood 2.4 mg/dL (2.5-4.9)
--- NOTE | 2023-01-20 05:51 | NUR ---
PT HAS HAD RESTLESS NIGHT. DID REQUIRE INCREASING PRECEDEX UP TO 1.4 MCG'S/KG/HOUR. PT HAS, UNFORTUNATELY, HIT HIS LEFT LEG AGAINST RAILINGS ENOUGH TO SUSTAIN ABRASIONS. DID PLACE PADS TO THE RAILINGS TO DEFER FURTHER INJURIES. SEE CIWA SCORING FOR DETAILS. WILL CONTINUE TO MONITOR PT, AND WILL REPORT OFF TO ONCOMING RN.
--- NOTE | 2023-01-20 08:00 | NUR ---
INITIAL ASSESSMENT PATIENT ON PRECEDEX DRIP AT 1.2 MCG/ KG/ HOUR FOR ETOH WITHDRAWALS. CIWA SCORE OF 9. PATIENT GOES IN BETWEEN SLEEPING OR AWAKE, ANXIOUS, ANGRY AND RESTLESS; TRYING TO GET OUT OF BED AND PULLING ON RESTRAINTS. PATIENT ORIENTED ONLY TO SELF. PATIENT RESPONDS TO VERBAL STIMULI WHEN SLEEPING. PATIENT DOES NOT TRACK NURSE WHEN EYES OPEN AND DOES NOT FOLLOW ANY COMMANDS. PATIENT HAS GOOD STRENGTH IN ALL EXTREMITIES. SPEECH MUMBLED AND DIFFICULT TO UNDERSTAND. PATIENT AFEBRILE. PATIENT GIVEN PRN PAIN MEDICATION FOR SIGNS OF PAIN THIS AM; PATIENT SEEMED TO RELAX MUCH AFTER ADMINISTERED. PATIENT SATTING 90% AND GREATER ON RA. WHEEZE NOTED IN LLL; ALL OTHER LUNG LOBES CLEAR TO AUSCULTATION. PATIENT HAS MOIST, NONPRODUCTIVE COUGH. PATIENT IN A. FIB WITH BBB, HR 70S TO 80S. SBP 130S TO 150S. PATIENT NPO BECAUSE OF AMS. DATE OF LAST BM UNKNOWN. ATTENDS IN PLACE FOR INCONTINENCE. URINE OFE IN COLOR. SCATTERED BRUISES NOTED. SEVERAL TOES ON FEET DARK PURPLE IN COLOR. DOPPLER PULSE NOTED TO R TIBIAL; ALL OTHER PULSES ABSENT. SKIN COOL TO TOUCH. PAD WOUNDS/ SCABS NOTED TO LLE AND L ANKLE. NS INFUSING AT 75 MLS/ HOUR. BED LOW, CALL LIGHT IN REACH.
--- NOTE | 2023-01-20 08:00 | NUR ---
DR. CHESTER UPDATED ON PATIENT STATUS. INFORMED THAT PATIENT ON PRECEDEX AT 1.2 MCG/ KG/ HOUR. INFORMED THAT PATIENT ON REGULAR DIET BUT THAT HE HAS REMAINED NPO BECAUSE OF AMS/ ON PRECEDEX. INFORMED THAT WBCS 21.52, HGB 7.3, PHOS 2.4 THIS AM. INFORMED THAT NO DVT PROPHYLAXIS AT THIS TIME. INFORMED THAT PRN FENTANYL GIVEN AND THAT PATIENT APPEARED MUCH MORE CALM AND RELAXED AFTER. INFORMED THAT DOPPLER PULSE NOTED TO L PEDAL BUT THAT NO OTHER PULSES ARE ABLE TO BE DOPPLERED IN FEET. INFORMED THAT R SECOND TOE PURPLE AND THAT L 1, 2, 3RD TOES PURPLE. INFORMED THAT PURPLE TOES ARE NOT BLANCHEABLE. ORDER FOR NO CHEMICAL OR MECHANICAL PROPHYLAXIS RECEIVED. NO OTHER ORDERS RECEIVED AT THIS TIME.
--- NOTE | 2023-01-20 10:20 | NUR ---
DR. MANN UPDATED ON PATIENT STATUS. INFORMED THAT L PEDAL PULSE DOPPLERED BUT THAT NOT ABLE TO HEAR ANY OTHER FOOT PULSES ON DOPPLER. INFORMED THAT R 2ND TOE PURPLE AND NOT BLANCHEABLE. INFORMED THAT L 1, 2, 3RD TOES PURPLE AND NOT BLANCHEABLE. NO ORDERS RECEIEVED AT THIS TIME.
[2023-01-20 11:01] LABS: Hemoglobin 7.9 g/dL (13.5-17.5)
--- NOTE | 2023-01-20 11:16 | NUR ---
DR. PORTILLO UPDATED ON PATIENT STATUS. INFORMED THAT PATIENT ON PRECEDEX AT 1.2 MCG/ KG/ MINUTE. INFORMED THAT TOES PURPLE AND ONLY L PEDAL PULSE DOPPLERED. INFORMED THAT PATIENT ON REGULAR DIET BUT HAS BEEN NPO BECAUSE OF MENTATION SO HAS NOT BEEN RECIEVING NUTRITION. NO ORDERS RECEIVED AT THIS TIME.
--- NOTE | 2023-01-20 12:30 | NUR ---
PATIENT HAS CORE TEMP OF 99.1 DEGREES FAHRENHEIT. HR IN THE LOW 100S. SBP IN THE 130S. CIWA SCORE OF 9. PRECEDEX INFUSING AT 0.7 MCG/ KG/ HOUR. PATIENT GIVEN PRN ATIVAN. PATIENT ON 2 L NC TO KEEP SATS 90% AND GREATER AFTER PAIN MED ADMINISTRATION. PATIENT CONTINUES TO MUMBLE AND GET OUT OF RESTRAINTS WHEN AWAKE. NO IMPROVEMENT IN NEURO STATUS THUS FAR. NO OTHER ACUTE CHANGES TO NOTE ON AT THIS TIME.
[2023-01-20 14:05] LABS: Anion Gap 5 mmol/L (6-16); Chloride, Blood 126 mmol/L (98-108); Potassium, Blood 3.4 mmol/L (3.5-5.5); Sodium, Blood 153 mmol/L (136-145)
--- NOTE | 2023-01-20 15:40 | NUR ---
PATIENT TAKEN TO PAINT STRIPING MACHINE OPERATOR.
--- NOTE | 2023-01-20 16:02 | NUR ---
Care Conference: Spoke to pt's RASHID today by phone. She states appreciation to staff including physicians and the care being given. Will continue with therapeutic visits with family.
--- NOTE | 2023-01-20 19:16 | NUR ---
SHIFT SUMMARY PATIENT HAS REMAINED EITHER SLEEPING OR AWAKE, RESTLESS, MUMBLING, AND ANGRY. PATIENT HAS REMAINED ON PRECEDEX DRIP. PRECEDEX LOW 0.5 MCG/ KG/ HOUR THIS SHIFT AND IS CURRENTLY AT 1.2 MCG/ LG/ HOUR. PATIENT REMAINED WITH GOOD STRENGTH. PATIENT SEEMED TO RESPOND BEST TO PAIN MEDICATION TO CALM HIM DOWN. PATIENT PLACED ON 2 L NC AFTER PAIN MED ADMINISTRATION. PATIENT REMAINS WITH MOIST COUGH. PATIENT HAS REMAINED IN A. FIB WITH BBB, HR 70S TO 120S. SBP 1-TEENS TO 190S. R TIBIAL PULSE REMAINS DOPPLERED. ALL OTHER FEET PULSES ABSENT. SEVERAL TOES DARK PURPLE IN COLOR. DR. MANN TOOK PATIENT TO ELECTRIC FURNACE OPERATOR TODAY; ANGIOPLASTY, 1 STENT PLACED AND LASER ARTHERECTOMY PERFORMED. NO BM THIS SHIFT. SUPPOSITORY GIVEN. PATIENT REMAINED NPO. PATIENT HAD ADEQUATE URINE OUTPUT. PATIENT REMAINED INCONTINENT AND IN ATTENDS. NS AT 75 MLS/ HOUR CHANGED TO D5 1/2 NS INFUSING AT 60 MLS/ HOUR. BLOOD SUGAR 45 FROM FINGER. D50 GIVEN. REPEAT BLOOD SUGAR FROM FINGER 38. BLOOD SUGAR TAKEN FROM PICC LINE AND WAS 212. COMPLETE BED BATH PERFORMED THI SHIFT. AND DAUGHTER HERE TO VISIT THIS SHIFT. REPORT GIVEN TO ASSUMING ANIMATION PRODUCER NURSE.
--- NOTE | 2023-01-20 20:00 | NUR ---
ASSUMED CARE OF PT AT 1915. REPORT RECEIVED AT BEDSIDE. RIGHT GROIN SITE SOFT. NO HEMATOMA OR OOZING TO NOTE. ABLE TO OBTAIN PALPABLE PEDAL PULSE ALTHOUGH VERY FAINT. PRECEDEX AT 1.2 MCG'S/KG/HOUR. PT'S DAUGHTER IN TO SEE PT AND HAS LEFT FOR THE NIGHT AFTER GETTING UPDATE. WILL REVIEW CHART AND PLAN OF CARE FOR THIS PT.
--- NOTE | 2023-01-20 20:55 | NUR ---
PT VERY RESTLESS. ADMINISTERED 2 MG DILAUDID FOR CHRONIC LEG PAIN AND POST PROCEDURAL. PT CALMS SOME. HAVE NOTED THAT PT HAS UPPER AIRWAY CONGESTION THAT HE HAS BEEN HAVING DIFFICULT TO CLEAR. DID DO UPPER AIRWAY SUCTIONING WITH 14 LIBERIAN SUCTION TUBE. OBTAINED COPIOUS AMOUNTS OF CREAM COLORED SECRETIONS. PLACED CONDOM CATHETER SECONDARY TO ONGOING INCONTINENCE THIS TO HELP DECREASE STIMULI. PT DOES HAVE LARGE BM. DARK COLORED STOOL. NO LONI BLOOD. HAVE ADMINISTERED 5 MG METOPROLOL FOR HTN, AND FOR AFIB WITH RVR.
[2023-01-20 21:18] LABS: Hematocrit 22.1 % (37.0-53.0); Hemoglobin 7.2 g/dL (13.5-17.5)
--- NOTE | 2023-01-20 22:01 | NUR ---
SUCTIONED PT AGAIN WITH RETURN OF MACDONALD COLORED SECRETIONS. WAS ABLE TO OBTAIN GOOD SAMPLE. SENT TO LAB FOR PROCESSING. PT HAD A STRONG COUGH DURING SUCTIONING THAT AIDED IN CLEARING HIS AIRWAY. WILL CONTINUE TO MONITOR.
[2023-01-21] VITALS (55 sets, daily range): BP systolic 113–182; BP diastolic 50–130
--- NOTE | 2023-01-21 03:43 | NUR ---
PT CONTINUES WITH CONSIDERABLE UPPER AIRWAY CONGESTION WITH NO NOTABLE GAG REFLEX. SECONDARY TO NOT BEING ABLE TO CLEAR SECRETIONS, OPTED TO PLACE 30 GEORGIAN NASAL TRUMPET AND DO NT SUCTIONING. THIS DONE WITH COPIOUS AMOUNTS OF CREAM/MACDONALD COLORED SECRETIONS. PT HAS GOOD CLEARING OF CONGESTION. OXYGEN SATURATIONS IMPROVE TO >95 PERCENT. PT TOLERATES THIS ONLY FAIR.
[2023-01-21 05:31] LABS: BASOPHILS ABSOLUTE AUTO 0.02 K/mm3 (0.00-0.23); BASOPHILS PERCENT AUTO 0 % (0-2); EOSINOPHILS PERCENT AUTO 0 % (0-6); Hematocrit 20.3 % (37.0-53.0); Hemoglobin 6.6 g/dL (13.5-17.5); IMMATURE GRAN ABSOLUTE AUTO 0.07 K/mm3 (0.00-0.10); IMMATURE GRAN PERCENT AUTO 0 % (0-1); LYMPHOCYTES ABSOLUTE AUTO 0.76 K/mm3 (0.84-5.20); LYMPHOCYTES PERCENT AUTO 4 % (21-46); MONOCYTES ABSOLUTE AUTO 1.99 K/mm3 (0.16-1.47); MONOCYTES PERCENT AUTO 11 % (4-13); Mean Corpuscular HGB 31.6 pg (26.0-34.0); Mean Corpuscular HGB Conc 32.5 g/dL (31.5-36.5); Mean Corpuscular Volume 97 fL (80-100); Mean Platelet Volume 10.8 fL (9.1-12.4); NEUTROPHILS ABSOLUTE AUTO 15.23 K/mm3 (1.96-9.15); NEUTROPHILS PERCENT AUTO 84 % (41-73); NRBC ABSOLUTE 0.32 K/mm3 (0.00-0.02); NRBC Auto 1.8 /100 WBC (0.0-0.2); Platelet Count 169 K/mm3 (150-400); RDW Coefficient Variation 19.1 % (11.7-14.2); RDW Standard Deviation 56.5 fL (35.1-46.3); Red Blood Cell Count 2.09 M/mm3 (4.30-5.90); White Blood Cell Count 18.07 K/mm3 (4.00-11.30)
[2023-01-21 06:00] LABS: Anion Gap 5 mmol/L (6-16); Blood Urea Nitrogen 17 mg/dL (8-24); Bun/Creatinine Ratio 20.8 (12.0-20.0); CO2, Blood 22 mmol/L (21-32); Calcium, Blood 7.6 mg/dL (8.5-10.1); Chloride, Blood 128 mmol/L (98-108); Creatinine, Blood 0.82 mg/dL (0.60-1.20); Glomerular Filtration Rate 95 (60-); Glucose, Blood 144 mg/dL (70-99); Phosphorus, Blood 2.4 mg/dL (2.5-4.9); Potassium, Blood 2.8 mmol/L (3.5-5.5); Sodium, Blood 155 mmol/L (136-145)
--- NOTE | 2023-01-21 07:20 | NUR ---
PT SLEEPS SOME, AND THEN AWAKENS AGITATED, AND THRASHES ABOUT BED. PT HAS BEEN INCONTINENT TO URINE AND STOOL THIS NIGHT. VERY RESISTENT TO ALL CARE. PER AM LAB, PT'S HGB 6.6 ONE UNIT PRBC'S TO BE TRANSFUSED. REPORT GIVEN TO JACQUELINE DAVENPORT.
[2023-01-21 12:06] LABS: Hematocrit 23.3 % (37.0-53.0); Hemoglobin 7.8 g/dL (13.5-17.5)
--- NOTE | 2023-01-21 12:07 | NUR ---
SHIFT ASSESSMENT ASSUMED CARE OF PT @ 0700. PT LIGHTLY SEDATED WITH PRECEDEX, TITRATING DOWN FORM 1.2MCG/KG/HR. 1 UNIT OF PRBC'S ADMINISTERED. PT WAKENS SPONTANEOUSLY, MOANS ALOUD AND PULLS VIGOROUSLY AGAINST RESTRAINTS. ASSISTED PT TO A MORE COMFORTABLE POSITION AND MEDICATED WITH PRN DILAUDID, PT APPEARS MUCH MORE COMFORTABLE. ON 2LPM O2 VIA NC c SATS >95%. NASAL TRUMPET IN PLACE FOR NT SUCTION. CONDOM CATH PLACED, DRAINING YELLOW URINE. NO BM THIS SHIFT. UNABLE TO OBTAIN DOPPLER PULSES TO BLE, SKIN COOL AND MOTTLED. DR. CHESTER AWARE, LOOKING INTO TRANSFERRING PT TO HOSPITAL WITH GI.
--- NOTE | 2023-01-21 15:02 | NUR ---
Transfer. Pt transferred to [facility] ICU room 28. Transported by Arianne Montesinos, lenny Jud @ [id number]. Pts spouse DJ contacted to fiber picker pts belongings, dentures are in belonging bag awaiting pickup.
== END 2023-01-21 15:00 | disposition short-term general hospital (02) | DRG 270 ==
LOC: ER 16:31 → ICUE 21:25 → PCU 21:25 → ICUE 21:25 → PCU 21:52 → ICUE 01-18 11:02
PROVIDERS: Emergency Medicine; Family Medicine; Internal Medicine Critical Care Medicine; Nurse Practitioner Acute Care; Student in an Organized Health Care Education/Training Program; ADMIT Internal Medicine
PROC: HZ2ZZZZ Detoxification Services for Substance Abuse Treatment (ICD-10-PCS; principal; 2023-01-18)
PROC: 30233N1 Transfusion of Nonautologous Red Blood Cells into Peripheral Vein, Percutaneous Approach (ICD-10-PCS; 2023-01-19)
PROC: 047L3Z1 Dilation of Left Femoral Artery using Drug-Coated Balloon, Percutaneous Approach (ICD-10-PCS; 2023-01-20)
PROC: 04CM3ZZ Extirpation of Matter from Right Popliteal Artery, Percutaneous Approach (ICD-10-PCS; 2023-01-20)
PROC: 047J3ZZ Dilation of Left External Iliac Artery, Percutaneous Approach (ICD-10-PCS; 2023-01-20)
PROC: 047H3DZ Dilation of Right External Iliac Artery with Intraluminal Device, Percutaneous Approach (ICD-10-PCS; 2023-01-20)
PROC: B41G1ZZ Fluoroscopy of Left Lower Extremity Arteries using Low Osmolar Contrast (ICD-10-PCS; 2023-01-20)
PROC: B41F1ZZ Fluoroscopy of Right Lower Extremity Arteries using Low Osmolar Contrast (ICD-10-PCS; 2023-01-20)
PROC: 02HV33Z Insertion of Infusion Device into Superior Vena Cava, Percutaneous Approach (ICD-10-PCS; 2023-01-21)
DX: I70.203 Unspecified atherosclerosis of native arteries of extremities, bilateral legs (principal); G92.8 Other toxic encephalopathy; J96.01 Acute respiratory failure with hypoxia; E87.0 Hyperosmolality and hypernatremia; K92.2 Gastrointestinal hemorrhage, unspecified; I48.21 Permanent atrial fibrillation; R65.10 Systemic inflammatory response syndrome (SIRS) of non-infectious origin without acute organ dysfunction; D62 Acute posthemorrhagic anemia; I50.22 Chronic systolic (congestive) heart failure; N17.9 Acute kidney failure, unspecified; J81.1 Chronic pulmonary edema; F10.139 Alcohol abuse with withdrawal, unspecified; I11.0 Hypertensive heart disease with heart failure; I45.10 Unspecified right bundle-branch block; F15.10 Other stimulant abuse, uncomplicated; E78.5 Hyperlipidemia, unspecified; R45.1 Restlessness and agitation; F12.90 Cannabis use, unspecified, uncomplicated; Z20.822 Contact with and (suspected) exposure to COVID-19; Z79.899 Other long term (current) drug therapy; Z87.891 Personal history of nicotine dependence; Z98.890 Other specified postprocedural states; Z95.820 Peripheral vascular angioplasty status with implants and grafts; Z79.01 Long term (current) use of anticoagulants; Z92.3 Personal history of irradiation; Z85.21 Personal history of malignant neoplasm of larynx; Z79.02 Long term (current) use of antithrombotics/antiplatelets; Z99.81 Dependence on supplemental oxygen; Y90.9 Presence of alcohol in blood, level not specified
CPT/HCPCS: 0241U; 36415; 36430; 36569; 37220; 37221; 37225; 71045; 74177; 75625; 75716; 75774; 76937; 80053; 80069; 81003; 82272; 82803; 82947; 83735; 83880; 84484; 85014; 85018; 85025; 85520; 85610; 85730; 86850; 86900; 86901; 86923; 87070; 87077; 87186; 87205; 93005; 93010; 93306; 93925; 93926; 94660; 94762; 96365; 99152; 99153; 99285-25; A9270; C1714; C1725; C1751; C1760; C1769; C1876; C1887; C1894; C2623; C9113; J1170; J1630; J1644; J2060; J2250; J2270; J2405; J2560; J3010; J3411; J3480; J7030; J7042; J7050; J7060; J7070; P9016; Q9967